=== PATIENT | male | born 1950 | race Caucasian/White ===

== ENCOUNTER 2017-05-28 11:03 | Inpatient (IN) | payer MEDICARE, BC ==
[2017-05-28] MEDS ORDERED: cefTRIAXone 1,000 MG in Sodium Chloride 0.9% 50 ML IV SCH (12:45)
[2017-05-28] MEDS: cefTRIAXone 1,000 MG VIAL IV SCH (14:25)
[2017-05-28] MEDS: Sodium Chloride 0.9% 1,000 ML IV SCH (14:37)
[2017-05-28] MEDS: Enoxaparin 40 MG/0.4 ML Syringe SUBCUT SCH (14:40)
--- NOTE | 2017-05-28 15:05 | HP ---
ADMISSION DATE: 05/28/2017 REASON FOR VISIT: Respiratory difficulty. HISTORY OF PRESENT ILLNESS: Gregorio Henley is a 67-year-old, male, [place] resident, who was admitted to [facility] on 05/28/2017. Presented to [facility] with increasing respiratory difficulty, mucus impairment, low-grade fever, chills, and sweats, and a sense of reduced well- being. Radiograph suggests left lower lobe pneumonia, underlying chronic lung disease. Admission to the hospital is indicated. MEDICATIONS: Present daily medications include levothyroxine 25 mcg one p.o. per G-tube daily; amitriptyline 25 mg two p.o. q.h.s., sleep enhancement; Robinul Forte one tab q.4 hours excessive salivation; tramadol 50 mg t.i.d. p.r.n. for pain. ALLERGIES: No medication, environmental, or latex allergies. 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 No other operative procedures, hospitalizations, unusual childhood diseases, major injuries, or fractures. 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 is 64, good health. Two children, one boy and one girl. Two grandchildren, 10 and 8, girl and boy. Never smoked. No alcohol consumption. No illicit drug use. FAMILY HISTORY: Noncontributory. REVIEW OF SYSTEMS: Other than HPI unremarkable, lack of verbal speech. PHYSICAL EXAMINATION: VITAL SIGNS: Stable and documented. General Exam: Young man, cooperative, conversant. No audible speech, all notes written. HEENT: Reveals funduscopic benign. Bright TMs. Clear nasal discharge. Mouth and oropharynx, unable to look in his mouth. Dentition in fair condition. NECK: Radical neck scar in right lateral neck intact, tracheostomy in place. CHEST: Decreased breath sounds with rales in the left lower lobe distribution. HEART: Regular without ectopy or murmur. ABDOMEN: Left upper quadrant PEG tube. No hepatosplenomegaly. No surgical scars. : Normal male genitalia. Rectum was not inspected. EXTREMITIES: Well perfused. LABORATORY STUDIES: Pending. RADIOGRAPH: At [facility], left lower lobe pneumonia. ASSESSMENT: Left lower lobe pneumonia, complicating issue, tracheostomy in place. For secondary diagnoses, please see above notes. PLAN: For community acquired pneumonia, azithromycin, Rocephin, complementary care and well being, really no indications for respiratory therapy. IV fluids in place. Blood cultures and diagnostic studies to follow. /[id number] RADHA/DUONG ALVES
[2017-05-29] MEDS: Sodium Chloride 0.9% 1,000 ML IV SCH ×2 (00:10→08:08)
[2017-05-29] MEDS: Levothyroxine 125 MCG Tab GTUBE SCH ×2 (07:19→08:03)
[2017-05-29] MEDS: Glycopyrrolate 1 MG Tab GTUBE PRN ×3 (08:03→16:19)
[2017-05-29] MEDS: traMADol 50 MG Tab GTUBE PRN (13:36)
[2017-05-29] MEDS: cefTRIAXone 1,000 MG VIAL IV SCH (13:39)
[2017-05-29] MEDS: Enoxaparin 40 MG/0.4 ML Syringe SUBCUT SCH (13:39)
[2017-05-29] MEDS ORDERED: Glycopyrrolate 1 MG Tab GTUBE PRN (14:31)
--- NOTE | 2017-05-29 18:47 | PN ---
DATE SEEN: 05/29/2017 SUBJECTIVE: Gregorio Henley is a 67-year-old, male, seen today for followup. Presented yesterday with respiratory distress, difficulty breathing, hypoxia, radiographic evidence of pneumonia. Feeling better this morning. Laboratory studies reviewed. Blood cultures negative. Influenza A and B testing negative. OBJECTIVE: VITAL SIGNS: 36.7, 114/61, 20, 90%. GENERAL: Appears comfortable. Conversation through the written word. HEENT: Tracheostomy site intact. CHEST: Decreased breath sounds in both lung torres. HEART: Regular. ABDOMEN: Benign. IMPRESSION: Pneumonia. PLAN: Repeat chest x-ray. Laboratory studies as available, complementary care, and well being. Spoke to discontinue IV fluids, would like to continue. /[id number] RADHA/DUONG
[2017-05-30] MEDS: Levothyroxine 125 MCG Tab GTUBE SCH (07:53)
[2017-05-30] MEDS: Glycopyrrolate 1 MG Tab GTUBE PRN ×3 (07:53→21:05)
[2017-05-30] MEDS: Levofloxacin 500 MG Tab PO SCH (10:17)
--- NOTE | 2017-05-30 10:30 | PN ---
DATE SEEN: 05/30/2017 SUBJECTIVE: Gregorio Henley is a 67-year-old male admitted with pneumonia. Progress has been present. Supplemental O2, not required. Sputum has been without complicating issue. Microbiology, sputum culture negative. Influenza A and B negative. OBJECTIVE: LUNGS: Better exchange throughout all lung torres. Distant heart sounds. Tracheostomy site is intact. GI: PEG tube, left upper quadrant, intact. IMPRESSION: Pneumonia. PLAN: We will switch from IV to oral antibiotics, complementary care and well being, plan discharge home tomorrow. /[id number] /DUONG
[2017-05-30] MEDS: Enoxaparin 40 MG/0.4 ML Syringe SUBCUT SCH (13:11)
[2017-05-30] MEDS: traMADol 50 MG Tab GTUBE PRN (14:03)
[2017-05-31] MEDS: Glycopyrrolate 1 MG Tab GTUBE PRN (08:11)
[2017-05-31] MEDS: Levothyroxine 125 MCG Tab GTUBE SCH (08:11)
[2017-05-31] MEDS: Levofloxacin 500 MG Tab PO SCH (09:46)
[2017-05-31 10:07] VITALS: BP 120/80
--- NOTE | 2017-05-31 12:25 | CR ---
INDICATION: Cough, pneumonia. CHEST: PA and lateral views of the chest, 05/29/2017, were compared with 2016, again revealing elevation of the right hemidiaphragm, which likely is at least partly anatomic. The vasculature appears somewhat congested, as previously, raising question of a mild or early CHF. The heart did not appear grossly enlarged, however. No gross consolidating pneumonia or definite effusion could be identified. Bony structures appear to be grossly intact. IMPRESSION: With the elevated diaphragm on the right and heart on the left, it is difficult to entirely exclude areas of patchy bronchopneumonia at the posterior lung bases. No gross consolidating pneumonia was seen, however - no definite acute process is seen. The pulmonary vasculature, however, is slightly prominent, raising question of a mild or early pulmonary vascular congestion, possibly due to CHF or other etiology. Findings should be correlated clinically. MTDD
--- NOTE | 2017-06-01 08:52 | DISCH ---
DISCHARGE DATE: 05/31/2017 DISCHARGE DIAGNOSIS: Community-acquired pneumonia. Rajinder Henley is a 67-year-old male, admitted through [facility]. He presented with progressive sense of reduced respiratory well-being, complicated cough, low-grade fever, moderate sputum, and hypoxia. Radiographically he was found to have left lower lobe pneumonia, underlying lung disease, and tracheostomy, and admission to hospital is indicated. DIAGNOSTIC STUDIES: Microbiology influenza A and B were negative, culture at 72 hours. No growth present two blood cultures. X-ray, observations accordingly. He was placed on IV azithromycin, IV Rocephin, response was satisfactory, hydration was appropriate, medications were adjusted. He was switched to oral antibiotics on 05/30/2017. At the time of discharge, on 05/31/2017, comfortable, feeling well, happy with outcome. Discharge to home on levothyroxine 500 mcg one p.o. daily for 10 days duration. Complementary care and well-being. Follow up with Dr. Woodson in 4 weeks duration. /[id number] RADHA/DUONG
== END 2017-05-31 11:05 | disposition home or self-care (01) | DRG 195 ==
LOC: FB.MS 11:03
PROVIDERS: ADMIT Family Medicine; ATTEND Family Medicine
DX: J18.9 Pneumonia, unspecified organism (principal); R09.02 Hypoxemia; Z93.0 Tracheostomy status; Z93.1 Gastrostomy status; Z85.89 Personal history of malignant neoplasm of other organs and systems
CPT/HCPCS: 36415; 71046; 80048; 85025; 87040; 87804; A9270-GY; J0456; J0696; J1650; J7030; J7050

== ENCOUNTER 2020-02-06 13:03 | Emergency (ER) | payer MEDICARE, BC ==
[2020-02-06] MEDS ORDERED: Sodium Chloride 0.9% 10 ML Syringe FLUSH PRN ×2 (13:05→13:08)
--- NOTE | 2020-02-06 15:18 | EDM.PDOC ---
ED HPI GENERAL MEDICAL PROBLEM - General Chief Complaint: Respiratory Problem Stated Complaint: Dyspnea Time Seen by Provider: 02/06/20 13:10 Source of Information: Reports: Patient History Limitations: Reports: No Limitations - History of Present Illness INITIAL COMMENTS - FREE TEXT/NARRATIVE: Patient presented to the ED because of increasing cough and dyspnea. He apparently went to a family gathering and one of the relatives tested positive for Covid-19. There is no associated fever,chills, nausea/vomiting/diarrhea. - Related Data Allergies Allergy/AdvReac Type Severity Reaction Status Date / Time No Known Allergies Allergy Verified 05/28/17 12:24 Home Meds: Home Meds Levothyroxine 125 mcg GTUBE DAILY@0600 12/22/14 [History] traMADol HCl [Ultram] 50 mg GTUBE Q6H PRN 12/22/14 [History] Amitriptyline [Elavil] 50 mg GTUBE BEDTIME 05/21/16 [History] Glycopyrrolate [Robinul Forte] 2 mg GTUBE Q4HR PRN 05/28/17 [History] levoFLOXacin [Levaquin] 500 mg PO Q24H #7 tablet 05/31/17 [Rx] Past Medical History Respiratory History: Reports: Pneumonia, Recurrent, Other (See Below) Other Respiratory History: Trach Musculoskeletal History: Reports: Other (See Below) Other Musculoskeletal History: 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 Psychiatric History: Reports: Depression Endocrine/Metabolic History: Reports: Hyperthyroidism Other Oncologic History: THROAT CA - Infectious Disease History Infectious Disease History: Reports: Chicken Pox, Measles, Mumps, Shingles - Past Surgical History HEENT Surgical History: Reports: Other (See Below) Other HEENT Surgeries/Procedures: NECK DISSECTION, TRACH, THROAT CA GI Surgical History: Reports: Other (See Below) Other GI Surgeries/Procedures: GTUBE Endocrine Surgical History: Reports: None Social & Family History - Family History Family Medical History: Unobtainable - Tobacco Use Smoking Status *Q: Unknown Ever Smoked - Caffeine Use Caffeine Use: Reports: None ED ROS GENERAL - Review of Systems Review Of Systems: See Below HEENT: Reports: No Symptoms Respiratory: Reports: Shortness of Breath, Cough, Sputum Cardiovascular: Reports: No Symptoms Endocrine: Reports: No Symptoms GI/Abdominal: Reports: No Symptoms : Reports: No Symptoms Musculoskeletal: Reports: No Symptoms Skin: Reports: No Symptoms ED EXAM, GENERAL - Physical Exam Exam: See Below Exam Limited By: No Limitations General Appearance: Alert, No Apparent Distress Ears: Normal External Exam, Normal Canal Nose: Normal Inspection, Normal Mucosa Throat/Mouth: Normal Inspection, Normal Lips Head: Atraumatic, Normocephalic Neck: Normal Inspection, Supple, Non-Tender, Full Range of Motion Respiratory/Chest: No Respiratory Distress, Lungs Clear, Normal Breath Sounds Cardiovascular: Normal Peripheral Pulses, Regular Rate, Rhythm, No Edema, No JVD, No Murmur GI/Abdominal: Normal Bowel Sounds, Soft, Non-Tender Back Exam: Normal Inspection, Full Range of Motion Course - Vital Signs Text/Narrative:: Labs/CXR was reviewed with patient and his spouse and verbalized full understanding Last Recorded V/S: Last Vital Signs Temp 37.6 C 02/06/20 13:07 Pulse 80 02/06/20 13:07 Resp 18 02/06/20 13:07 BP 115/81 02/06/20 13:07 Pulse Ox 94 L 02/06/20 14:21 - Orders/Labs/Meds Orders: Active Orders 24 hr Category Date Time Status EKG Documentation Completion [RC] ASDIRECTED Care 02/06/20 15:24 Active Chest 1V Frontal [CR] Stat Exams 02/06/20 13:05 Ordered CULTURE BLOOD [BC] Urgent Lab 02/06/20 13:30 Received CULTURE BLOOD [BC] Urgent Lab 02/06/20 13:35 Received Sodium Chloride 0.9% [Saline Flush] Med 02/06/20 13:05 Active 10 ml FLUSH ASDIRECTED PRN Sodium Chloride 0.9% [Saline Flush] Med 02/06/20 13:08 Active 10 ml FLUSH ASDIRECTED PRN Blood Culture x2 Reflex Set [OM.PC] Urgent Oth 02/06/20 13:05 Ordered Saline Lock Insert [OM.PC] Routine Oth 02/06/20 13:05 Ordered Saline Lock Insert [OM.PC] Routine Oth 02/06/20 13:08 Ordered EKG 12 Lead [EK] Routine Ther 02/06/20 15:23 Ordered Medication Orders Sodium Chloride (Saline Flush) 10 ml FLUSH ASDIRECTED PRN PRN Reason: Keep Vein Open Sodium Chloride (Saline Flush) 10 ml FLUSH ASDIRECTED PRN PRN Reason: Keep Vein Open Labs: Laboratory Tests 02/06/20 02/06/20 02/06/20 Range/Units 13:30 13:30 13:30 WBC 5.6 (4.5-12.0) X10-3/uL RBC 4.05 L (4.30-5.75) x10(6)uL Hgb 12.6 L (13.5-17.8) g/dL Hct 39.1 (30.0-51.3) % MCV 96.5 H (80-96) fL MCH 31.0 (27.7-33.6) pg MCHC 32.1 L (32.2-35.4) g/dL RDW 13.7 (11.5-15.5) % Plt Count 86 L (125-369) X10(3)uL MPV 9.2 (7.4-10.4) fL Neut % (Auto) 74.3 (46-82) % Lymph % (Auto) 16.1 (13-37) % [place] % (Auto) 9.3 (4-12) % Eos % (Auto) 0 L (1.0-5.0) % Baso % (Auto) 0 (0-2) % Neut # (Auto) 4.2 (1.6-8.3) # Lymph # (Auto) 0.9 (0.6-5.0) # [place] # (Auto) 0.5 (0.0-1.3) # Eos # (Auto) 0.0 (0.0-0.8) # Baso # (Auto) 0.0 (0.0-0.2) # VBG pH (7.32-7.42) VBG pCO2 VBG pO2 VBG HCO3 mmol/L VBG O2 Saturation VBG Base Excess O2 Delivery Device Sodium 135 (135-145) mmol/L Potassium 4.3 (3.5-5.3) mmol/L Chloride 96 L D (100-110) mmol/L Carbon Dioxide 34 H (21-32) mmol/L BUN 33 H (7-18) mg/dL Creatinine 1.3 (0.70-1.30) mg/dL Est Cr Clr Drug Dosing TNP Estimated GFR (MDRD) 55 L (>60) BUN/Creatinine Ratio 25.4 H (9-20) Glucose 99 (80-116) mg/dL Lactic Acid 0.9 (0.4-2.0) mmol/L Calcium 8.2 L (8.6-10.2) mg/dL Total Bilirubin 0.5 (0.1-1.3) mg/dL AST 43 H (5-25) IU/L ALT 23 (12-36) U/L Alkaline Phosphatase 76 (56-112) IU/L Troponin I (4.0-60.3) pg/mL NT-Pro-B Natriuret Pep (<=125) pg/mL Total Protein 7.9 (6.0-8.0) g/dL Albumin 3.0 L (3.2-4.6) g/dL Globulin 4.9 g/dL Albumin/Globulin Ratio 0.6 SARS-CoV-2 RNA (TEENA) (NEGATIVE) 02/06/20 02/06/20 02/06/20 Range/Units 13:30 13:30 13:30 WBC (4.5-12.0) X10-3/uL RBC (4.30-5.75) x10(6)uL Hgb (13.5-17.8) g/dL Hct (30.0-51.3) % MCV (80-96) fL MCH (27.7-33.6) pg MCHC (32.2-35.4) g/dL RDW (11.5-15.5) % Plt Count (125-369) X10(3)uL MPV (7.4-10.4) fL Neut % (Auto) (46-82) % Lymph % (Auto) (13-37) % [place] % (Auto) (4-12) % Eos % (Auto) (1.0-5.0) % Baso % (Auto) (0-2) % Neut # (Auto) (1.6-8.3) # Lymph # (Auto) (0.6-5.0) # [place] # (Auto) (0.0-1.3) # Eos # (Auto) (0.0-0.8) # Baso # (Auto) (0.0-0.2) # VBG pH 7.304 L (7.32-7.42) VBG pCO2 65.6 VBG pO2 30.7 VBG HCO3 33 mmol/L VBG O2 Saturation 50.2 VBG Base Excess 6.2 O2 Delivery Device Nasal cannula Sodium (135-145) mmol/L Potassium (3.5-5.3) mmol/L Chloride (100-110) mmol/L Carbon Dioxide (21-32) mmol/L BUN (7-18) mg/dL Creatinine (0.70-1.30) mg/dL Est Cr Clr Drug Dosing Estimated GFR (MDRD) (>60) BUN/Creatinine Ratio (9-20) Glucose (80-116) mg/dL Lactic Acid (0.4-2.0) mmol/L Calcium (8.6-10.2) mg/dL Total Bilirubin (0.1-1.3) mg/dL AST (5-25) IU/L ALT (12-36) U/L Alkaline Phosphatase (56-112) IU/L Troponin I 80.3 H* (4.0-60.3) pg/mL NT-Pro-B Natriuret Pep 1535 H* (<=125) pg/mL Total Protein (6.0-8.0) g/dL Albumin (3.2-4.6) g/dL Globulin g/dL Albumin/Globulin Ratio SARS-CoV-2 RNA (TEENA) Negative (NEGATIVE) 02/06/20 Range/Units 15:32 WBC (4.5-12.0) X10-3/uL RBC (4.30-5.75) x10(6)uL Hgb (13.5-17.8) g/dL Hct (30.0-51.3) % MCV (80-96) fL MCH (27.7-33.6) pg MCHC (32.2-35.4) g/dL RDW (11.5-15.5) % Plt Count (125-369) X10(3)uL MPV (7.4-10.4) fL Neut % (Auto) (46-82) % Lymph % (Auto) (13-37) % [place] % (Auto) (4-12) % Eos % (Auto) (1.0-5.0) % Baso % (Auto) (0-2) % Neut # (Auto) (1.6-8.3) # Lymph # (Auto) (0.6-5.0) # [place] # (Auto) (0.0-1.3) # Eos # (Auto) (0.0-0.8) # Baso # (Auto) (0.0-0.2) # VBG pH (7.32-7.42) VBG pCO2 VBG pO2 VBG HCO3 mmol/L VBG O2 Saturation VBG Base Excess O2 Delivery Device Sodium (135-145) mmol/L Potassium (3.5-5.3) mmol/L Chloride (100-110) mmol/L Carbon Dioxide (21-32) mmol/L BUN (7-18) mg/dL Creatinine (0.70-1.30) mg/dL Est Cr Clr Drug Dosing Estimated GFR (MDRD) (>60) BUN/Creatinine Ratio (9-20) Glucose (80-116) mg/dL Lactic Acid (0.4-2.0) mmol/L Calcium (8.6-10.2) mg/dL Total Bilirubin (0.1-1.3) mg/dL AST (5-25) IU/L ALT (12-36) U/L Alkaline Phosphatase (56-112) IU/L Troponin I 62.2 H* (4.0-60.3) pg/mL NT-Pro-B Natriuret Pep (<=125) pg/mL Total Protein (6.0-8.0) g/dL Albumin (3.2-4.6) g/dL Globulin g/dL Albumin/Globulin Ratio SARS-CoV-2 RNA (TEENA) (NEGATIVE) Meds: Medications Generic Name Dose Route Start Last Admin Trade Name Freq PRN Reason Stop Dose Admin Sodium Chloride 10 ml 02/06/20 13:05 Saline Flush FLUSH ASDIRECTED PRN Keep Vein Open Sodium Chloride 10 ml 02/06/20 13:08 Saline Flush FLUSH ASDIRECTED PRN Keep Vein Open Departure - Departure Time of Disposition: 16:25 Disposition: Home, Self-Care 01 Condition: Good Clinical Impression: URI (upper respiratory infection) - Discharge Information Referrals: PCP,None [Ordering Only Provider] - Forms: ED Department Discharge Additional Instructions: Follow up with Dr Blake with regards to your elevated pro-BNP Please read discharge on URI Sepsis Event Note (ED) - Evaluation Sepsis Screening Result: No Definite Risk - Focused Exam Vital Signs: Vital Signs Temp Pulse Resp BP Pulse Ox Pulse Ox 02/06/20 14:21 94 L 02/06/20 13:07 37.6 C 80 18 115/81 86 L - My Orders Last 24 Hours: My Active Orders 02/06/20 13:05 Chest 1V Frontal [CR] Stat Sodium Chloride 0.9% [Saline Flush] 10 ml FLUSH ASDIRECTED PRN Blood Culture x2 Reflex Set [OM.PC] Urgent Saline Lock Insert [OM.PC] Routine 02/06/20 13:08 Sodium Chloride 0.9% [Saline Flush] 10 ml FLUSH ASDIRECTED PRN Saline Lock Insert [OM.PC] Routine 02/06/20 13:30 CULTURE BLOOD [BC] Urgent 02/06/20 13:35 CULTURE BLOOD [BC] Urgent 02/06/20 15:23 EKG 12 Lead [EK] Routine 02/06/20 15:24 EKG Documentation Completion [RC] ASDIRECTED - Assessment/Plan Last 24 Hours: My Active Orders 02/06/20 13:05 Chest 1V Frontal [CR] Stat Sodium Chloride 0.9% [Saline Flush] 10 ml FLUSH ASDIRECTED PRN Blood Culture x2 Reflex Set [OM.PC] Urgent Saline Lock Insert [OM.PC] Routine 02/06/20 13:08 Sodium Chloride 0.9% [Saline Flush] 10 ml FLUSH ASDIRECTED PRN Saline Lock Insert [OM.PC] Routine 02/06/20 13:30 CULTURE BLOOD [BC] Urgent 02/06/20 13:35 CULTURE BLOOD [BC] Urgent 02/06/20 15:23 EKG 12 Lead [EK] Routine 02/06/20 15:24 EKG Documentation Completion [RC] ASDIRECTED
[2020-02-06 17:23] VITALS: BP 111/62; PULSE 112
== END 2020-02-06 16:30 | disposition home or self-care (01) ==
LOC: FB.ED 13:03
DX: J06.9 Acute upper respiratory infection, unspecified (principal); E05.90 Thyrotoxicosis, unspecified without thyrotoxic crisis or storm; F32.9 Major depressive disorder, single episode, unspecified; Z93.1 Gastrostomy status; Z20.828 Contact with and (suspected) exposure to other viral communicable diseases; Z79.899 Other long term (current) drug therapy
CPT/HCPCS: 36415; 71045; 80053; 82803; 83605; 83880; 84484; 85025; 87040; 93005; 99285-25; U0002